=== PATIENT | male | born 2000 | race Caucasian/White ===

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

== ENCOUNTER 2023-11-17 23:07 | Emergency (ER) | payer BC, SELFPAY ==
[2023-11-17 23:08] VITALS: BP 164/79; PULSE 68; RESP 15; TEMP 36.8; O2SAT 99; BMI 32.8
--- NOTE | 2023-11-17 23:24 | EX.ED.DYSGE1 ---
HPI History of Present Illness Chief Complaint: Abd Pain Informant: patient and spouse/S.O. Narrative Narrative: 23-year-old male presenting to the emergency room chief complaint of reflux. Patient states he was diagnosed with peptic ulcer disease in the past. He states he had a scope 1 year ago which showed a healing ulcer as well as irritation in the throat . Recently has been having increased discomfort about 20 minutes after eating. He has been taking Mylanta and Pepcid as well as other [id number]-[id number] medication. Patient states he called to get a doctor's appointment but does not have one until the end of December. He states he is not a tobacco user. Hhe denies any black or bloody stools. No syncope. No right upper quadrant or shoulder pain. No history of pancreatic problems. No recent weight loss. Patient states that GI cocktails helped him significantly in the past. Patient has some intolerances to medications including Protonix and Carafate. PFSH PFSH Medical History Gastric ulcer Home Medications colestipol 1 gram tablet (Colestid) 1 g PO TID PRN Diarrhea 03/30/21 [History Last Taken Unknown] esomeprazole magnesium 40 mg capsule,delayed release (Nexium) 40 mg PO DAILY #30 caps 11/17/23 [Rx Last Taken Unknown] Allergy/AdvReac Type Severity Reaction Status Date / Time No Known Allergies Allergy Verified 03/30/21 22:21 Surgical History History of cholecystectomy Social History Smoking Status: Never smoker ROS ROS ED Constitutional Constitutional ED: Denies chills, fever(s) or weight loss Eyes Eyes: Denies change in vision or diplopia ENT ENT ED: Denies ear pain, rhinorrhea or sore throat Cardiovascular Cardiovascular: Denies chest pain, orthopnea, palpitations or racing heartbeat Respiratory/Chest Respiratory/Chest: Denies cough, dyspnea or orthopnea Gastrointestinal Gastrointestinal: Reports abdominal pain; Denies diarrhea, melena, nausea or vomiting Genitourinary Genitourinary ED: Denies dysuria, hematuria or urinary frequency Musculoskeletal Musculoskeletal: Denies arthralgias or myalgias Integumentary Denies abscess or rash Neurologic Neurologic: Denies headache(s) or weakness Psychiatric Psychiatric: Denies anxiety, depression, suicidal ideation or suicidal thoughts Endocrine Endocrinology: Denies polydipsia, polyphagia or polyuria Allergic/Immunologic Allergic/Immunologic ED: Denies mouth swelling, tongue swelling or urticaria EXAM Physical Exam Const Vital Signs: 11/17/23 23:08 Temperature 98.2 F Temperature Source Temporal Pulse Rate 68 Respiratory Rate 15 Blood Pressure 164/79 H Blood Pressure Mean 107 Pulse Ox 99 Oxygen Delivery Method Room Air Positive well nourished and well developed General Appearance ED: well developed HEENT Reports normocephalic, head/scalp atraumatic and moist mucous membranes Eyes PERRL and EOMs intact bilaterally Neck no lymphadenopathy, supple and no JVD Resp normal respiratory effort and clear to auscultation bilaterally Cardio regular rate, regular rhythm and no murmurs GI normal to inspection, nondistended, normoactive bowel sounds and non-tender Palpation: soft Back/Spine no CVA tenderness and normal ROM Extremity normal to inspection General Extremety ED: Negative for edema General Extremity: Negative for edema Neuro oriented x3 and CN's II-XII intact bilaterally Sensorium / Orientation: alert Motor Exam: strength 5/5 throughout Psych mental status grossly normal Mood & Affect: Negative for depressed or tearful Skin no rashes or lesions noted and no wounds MDM MDM MDM Narrative Medical decision making narrative: The patient certainly needs to see his record filing clerk and possibly need another scope. He needs to begin PPI therapy. He can continue Mylanta. Will place him on Nexium which he does not believe he has had problems with that he is also unsure if he is ever taken it. Based on the history physical exam I do not see that labs are indicated. I do not believe he needs admission at this time. History & Record Review Discussion w/independent historian: Patient Additional record(s) reviewed:: Prior ED visit Discharge Plan Triage Chief Complaint: Abd Pain ED Provider: Justus Macdonald Dx/Rx/DC Orders Clinical Impression: GERD (gastroesophageal reflux disease), Abdominal pain Instructions: ED GERD (Adult) Prescriptions: New esomeprazole magnesium [Nexium] 40 mg capsule,delayed release(DR/EC) 40 mg PO DAILY Qty: 30 1RF No Action colestipol [Colestid] 1 gram Tablet 1 g PO TID PRN (Reason: Diarrhea) Primary Care Provider: Jeannette Olivas Referrals: Jeannette Olivas MD [Primary Care Provider] - Activity Restrictions/Additional Instructions: Continues to use Mylanta to help with discomfort. Please keep your follow-up appointment Monitor for black or bloody stools Disposition Disposition: Home, Self Care
--- OUTSIDE RECORDS SUMMARY | 2023-11-17 23:29 | XMS RPT_ITS | CCD ---
Author Name Unknown Address [address] [place] [address] Organization [facility] Care Team Providers Care Combat Control Manager Name Role Phone Jeannette Olivas MD Primary Care Provider [phone] MARY ARTIFICIAL LEATHER CALENDER OPERATOR, MARINA Attending Unavailable MARY ARTIFICIAL LEATHER CALENDER OPERATOR, MARINA Consulting Unavailable MARY ARTIFICIAL LEATHER CALENDER OPERATOR, MARINA Primary Care Unavailable MARY ARTIFICIAL LEATHER CALENDER OPERATOR, MARINA Admitting Unavailable Jeannette Olivas MD Primary Care Provider Jeannette Olivas MD Primary Care Provider KYLAH BURDICK Attending Unavailabl e MURNENJEANNETTE Primary Care Unavailable JEANNETTE OLIVAS Primary Care Unavailable KYLAH BURDICK Attending Unavailabl e KYLAH BURDICK Attending Unavailabl e JEANNETTE OLIVAS Primary Care Unavailable JEANNETTE OLIVAS Primary Care Unavailable Allergies Allergy Classification Reported Allergen(s) Allergy Type Date of Onset Reaction(s) Facility Ciprofloxacin / Dexamethasone (1 source) Ciprofloxacin / Dexamethasone Drug Allergy 04-12-2021 [facility] Sucralfate (1 source) Sucralfate Drug Allergy 04-12-2021 [facility] (1 source) Ciprofloxacin / Dexamethasone Drug Allergy [facility] Rep[facility] (4 sources) Ciprofloxacin / Dexamethasone; Translations: [CIPROFLOXACIN-DEX AMETHASONE] Drug Allergy 04-12-2021 [facility] (4 sources) Sucralfate; Translations: [SUCRALFATE] Drug Allergy 04-12-2021 [facility] Medications Current Medications Medication Drug Class(es) Dates Sig (Normalized) Sig (Original) Ascorbic Acid / POLYETHYLENE GLYCOL 3350 / Potassium Chloride / Sodium Ascorbate / Sodium Chloride / sodium sulfate (1 source) Osmotic Laxative, Vitamin C Start: 10-17-2022 End: 10-17-2022 [id number] (Plenvu) 140-9-5.2 gram PPkS Take 1 kit by mouth once For colonoscopy prep for 1 dose . 3 packet 0 10/17/2022 10/17/2022 Active famotidine 20 mg oral tablet (1 source) Histamine-2 Receptor Antagonist Start: 09-05-2022 End: 09-05-2023 take 1 tablet by mouth twice daily famotidine (PEPCID) 20 MG tablet Take 1 (one) tablet (20 mg total) by mouth 2 (two) times a day . 60 tablet 11 09/05/2022 09/05/2023 Active pantoprazole 40 mg delayed release oral tablet (1 source) Proton Pump Inhibitor Start: 07-19-2022 take 1 tablet by mouth once daily pantoprazole (PROTONIX) 40 MG tablet Take 1 (one) tablet (40 mg total) by mouth daily . 30 tablet 11 07/19/2022 Active Problems Active Problems Problem Classification Problem Date Documented Da te Episodic/Chronic Abdominal pain (2 sources) Generalized abdominal pain; Translations: [Generalized abdominal pain] Onset: 11-02-2022 Episodic Esophageal disorders (2 sources) Esophageal disorders; Translations: [Gastro-esophageal reflux disease with esophagitis, without bleeding] Onset: 07-19-2022 Hemorrhoids (2 sources) Other hemorrhoids; Translations: [Other hemorrhoids] Onset: 11-02-2022 Episodic Noninfectious gastroenteritis (2 sources) Noninfective gastroenteritis and colitis, unspecified; Translations: [Noninfective gastroenteritis and colitis, unspecified] Onset: 11-02-2022 Episodic Other disorders of stomach and duodenum (2 sources) Other diseases of stomach and duodenum; Translations: [Other diseases of stomach and duodenum] Onset: 10-04-2022 Episodic Other gastrointestinal disorders (3 sources) Diarrhea, unspecified; Translations: [DIARRHEA UNSPECIFIED] Onset: 05-14-2022 Episodic Other gastrointestinal disorders (2 sources) Change in bowel habit; Translations: [Change in bowel habit] Onset: 11-02-2022 Episodic Other gastrointestinal disorders (2 sources) Other specified symptoms and signs involving the digestive system and abdomen; Translations: [Other specified symptoms and signs involving the digestive system and abdomen] Onset: 10-03-2022 Episodic Other nutritional; endocrine; and metabolic disorders (2 sources) Abnormal weight loss; Translations: [Abnormal weight loss] Onset: 11-02-2022 Episodic Past or Other Problems Problem Classification Problem Date Documented Da te Episodic/Chronic Abdominal hernia (2 sources) Diaphragmatic hernia without obstruction or gangrene; Translations: [Diaphragmatic hernia without obstruction or gangrene] Onset: 07-19-2022 Episodic Nausea and vomiting (2 sources) Nausea with vomiting, unspecified; Translations: [Nausea with vomiting, unspecified] Onset: 07-19-2022 Episodic Other gastrointestinal disorders (2 sources) Heartburn; Translations: [Heartburn] Onset: 07-19-2022 Episodic Results Test Name Value Interpretation Reference [facility] ity Encounters Encounter Date Encounter Type Care Provider Facility Start: 11-02-2022 End: 11-02-2022 ambulatory [facility] Start: 11-01-2022 Patient encounter procedure Kylah Burdick MD Work Phone: [facility] Start: 10-04-2022 End: 10-04-2022 ambulatory [facility] Start: 10-03-2022 End: 10-07-2022 ambulatory [facility] Start: 10-03-2022 Patient encounter procedure Kylah Burdick MD Work Phone: [facility] Start: 07-19-2022 End: 07-19-2022 ambulatory [facility] Start: 07-19-2022 Patient encounter procedure Kylah Burdick MD Work Phone: [facility] Start: 05-05-2022 End: 05-06-2022 ambulatory MARINA HERNANDEZ NP Facility:[facility] Start: 05-02-2021 End: 05-02-2021 Patient encounter procedure Anila Barker DO Work Phone: [facility] Plan of Treatment Date Care Activity Detail Author Start: 06-08-2023 Tetanus vaccination Tetanus: Every 10yrs [facility] Start: 11-01-2022 End: 11-01-2022 Patient encounter procedure 11/01/2022 Office Visit Gastroenterology Kylah Burdick MD [address] [address] [facility] Start: 10-03-2022 End: 10-03-2022 Patient encounter procedure 10/03/2022 Office Visit Gastroenterology Kylah Burdick MD [address] [address] [facility] Start: 07-19-2022 End: 07-19-2022 Patient encounter procedure 07/19/2022 Office Visit Gastroenterology Kylah Burdick MD [address] [address] [facility] Start: 05-09-2022 Influenza vaccination Sequential Influenza Vaccine (#1) [facility] Start: 07-12-2021 COVID-19 Vaccine (3 - Booster for Pfizer series) COVID-19 Vaccine (3 - Booster for Pfizer series) [facility] Start: 05-09-2021 Influenza vaccination Sequential Influenza Vaccine (#1) [facility] Start: 05-02-2021 End: 05-02-2021 Patient encounter procedure 05/02/2021 Office Visit Gastroenterology Anila Barker DO [address] [address] [phone] [facility] Start: 2020 Hepatitis C screening Hepatitis C Screening [facility] Start: 2017 HIV screening HIV Screening [facility] Start: 2014 COVID-19 Vaccine (1) COVID-19 Vaccine (1) [facility] Start: 2014 Depression screening using PHQ-9 (Patient Health Questionnaire 9) score [facility] Start: 2013 Vaccination for human papillomavirus HPV Vaccines (1 - Male 2-dose series) [facility] Start: 2005 History and physical examination, annual for health maintenance Wellness Visit [facility] Start: 2002 COVID-19 Vaccine (#1) COVID-19 Vaccine (#1) [facility] Start: 2002 Tetanus vaccination Tetanus: Every 10yrs [facility] Payers Date Payer Category Payer Private Health Insurance [id number] 2021 Private Health Insurance [employer] A ETNA OPEN CHOICE PPO [id number] 2021-Present [phone] [address] [place] [address] [id number] 2020 Unknown [facility] HMO/YA CE PLUS/NATALIE/NATALIE PLUS [id number] 2020-Present [id number] 2002 Unknown [id number] 2002 Unknown [id number] 2002 Unknown [id number] 2002 Unknown [id number] 2002 Unknown [id number] Social History Date Type Detail Facility Start: 04-12-2021 Tobacco smoking status TNIS Unknown if ever smoked [facility] Start: 2002 Sex Assigned At Not on file [facility] Exposure to SARS-CoV-2 (event) Unable to assess [facility] Summary Purpose Family History No Family History Records FoundNo Family History Records FoundNo Family History Records FoundNo Family History Records FoundNo Family History Records Found Advance Directives No Advanced Directives Records FoundNo Advanced Directives Records FoundNo Advanced Directives Records FoundNo Advanced Directives Records FoundNo Advanced Directives Records Found Additional Source Comments (unrecognized sect ion and content) No Status Records FoundNo Status Records FoundNo Status Records FoundNo Status Records FoundNo Status Records Found INFORMATION SOURCE (unrecogn ized section and content) DATE CREATED AUTHOR AUTHOR'S ORGANIZ ATION 09/14/2019 [facility] DATE CREATED AUTHOR AUTHOR'S ORGANIZ ATION 09/14/2019 [facility] DATE CREATED AUTHOR AUTHOR'S ORGANIZ ATION 05/14/2022 [facility] DATE CREATED AUTHOR AUTHOR'S ORGANIZ ATION 11/03/2022 [place] Care Teams (unrecognized sec tion and content) Combat Control Manager Relationship Specialty Start Date End Date Jeannette Olivas MD [address] [place] [address] PCP - General Family Medicine 04/12/21 Combat Control Manager Relationship Specialty Start Date End Date Jeannette Olivas MD [address] [place] [address] PCP - General Family Medicine 04/12/21 FOR RECORDS PERTAINING TO PATIENTS WHO ARE OR HAVE BEEN ENROLLED IN A CHEMICAL DEPENDENCY/SUBSTANCEABUSE PROGRAM, SOME INFORMATION MAY BE OMITTED. This clinical summary was aggregated from multiple sources. Caution should be exercised in using it in the provision of clinical care. This summary normalizes information from multiple sources, and as a consequence, information in this document may materially change the coding, format and clinical context of patient data. In addition, data may be omitted in some cases. CLINICAL DECISIONS SHOULD BE BASED ON THE PRIMARY CLINICAL RECORDS. [employer] provides no warranty or guarantee of the accuracy or completeness of information in this document.
[2023-11-17] MEDS: Mag Hydrox/Al Hydrox/Simeth 30 ML UDC PO (23:34)
[2023-11-17 23:37] VITALS: BP 157/82; PULSE 74; RESP 18; TEMP 36.8; O2SAT 95
== END 2023-11-17 23:38 | disposition home or self-care (01) ==
LOC: ED 23:27
PROVIDERS: Emergency Provider Emergency Medicine; PCP Family Medicine; Visit Provider Emergency Medicine
DX: K21.9 Gastro-esophageal reflux disease without esophagitis (principal); R10.9 Unspecified abdominal pain
CPT/HCPCS: 99283